=== PATIENT | male | born 1965 | race Caucasian/White ===

== ENCOUNTER 2019-07-22 05:49 | Emergency (ER) | payer SELFPAY ==
[~2019-07-22] VITALS: Ht 182.9 cm; Wt 118.0 kg
[2019-07-22] MEDS ORDERED: DEXAMETHASONE 10 MG/ML VIAL IM ONE (06:30)
[2019-07-22 07:08] VITALS: BP 141/89
== END 2019-07-22 07:11 | disposition home or self-care (01) ==
LOC: ER 06:41
DX: K12.2 Cellulitis and abscess of mouth (principal); F17.210 Nicotine dependence, cigarettes, uncomplicated; Z98.890 Other specified postprocedural states
CPT/HCPCS: 96372; 99283; J1100